=== PATIENT | male | born 1990 | race Caucasian/White ===

== ENCOUNTER 2023-10-14 03:07 | Emergency (ER) | payer BC ==
[2023-10-14 04:02] LABS: CORONAVIRUS COVID-19 NAA NEGATIVE (NEGATIVE); INFLUENZA A NAA NEGATIVE (NEGATIVE); INFLUENZA B NAA NEGATIVE (NEGATIVE); RESPIRATORY SYNCYTIAL VIR NAA NEGATIVE (NEGATIVE)
[2023-10-14] MEDS ORDERED: Azithromycin 250 MG Tab PO ONE (04:09)
[2023-10-14] MEDS ORDERED: Ibuprofen 600 MG Tab PO ONE (04:10)
[2023-10-14] MEDS ORDERED: Acetaminophen 325 MG Tab PO ONE (04:10)
== END 2023-10-14 04:27 | disposition home or self-care (01) ==
LOC: MW.ED 03:07
DX: J02.0 Streptococcal pharyngitis (principal); Z20.822 Contact with and (suspected) exposure to COVID-19; Z88.0 Allergy status to penicillin; Z79.899 Other long term (current) drug therapy
CPT/HCPCS: 0241U; 87651; 99283; A9270